=== PATIENT | female | born 1980 | race Caucasian/White ===

== ENCOUNTER 2018-09-30 00:10 | Inpatient (IN) | payer OTHER ==
[2018-09-30] VITALS (714 sets, daily range): BP systolic 124–154; BP diastolic 79–100; PULSE 71–98; TEMP 97.9–98.7; O2SAT 88–100
[~2018-09-30] VITALS: Ht 167.6 cm; Wt 199.3 kg
[2018-09-30] MEDS ORDERED: LIPITOR 10MG10 MG PO (01:53)
[2018-09-30] MEDS ORDERED: MASON NATURAL2000 IU PO (01:55)
[2018-09-30] MEDS ORDERED: PROVERA 10MG10 MG PO (01:55)
[2018-09-30] MEDS ORDERED: CELEXA 20MG20 MG/TAB PO (01:57)
[2018-09-30] MEDS ORDERED: ALBUTEROL0.83 MG/ML IH (01:58)
[2018-09-30] MEDS ORDERED: PRINIVIL20 MG PO (01:59)
[2018-09-30] MEDS ORDERED: GLUCOPHAGE XR500 M1 PO (01:59)
[2018-09-30] MEDS ORDERED: SINGULAIR 110 MG/TAB PO (02:00)
[2018-09-30] MEDS ORDERED: ZYRTEC 10MG10 MG PO (02:00)
[2018-09-30] MEDS ORDERED: FLOVENT 220MCG7.9 GM IH (02:01)
[2018-09-30] MEDS ORDERED: PROAIR HFA0.09 MG/AC IH (02:02)
[2018-09-30] MEDS ORDERED: QUALITY CHOICE AL70% TP (02:03)
[2018-09-30] MEDS ORDERED: LANCETS MC (02:04)
[2018-09-30 02:31] LABS: HEMOGLOBIN 15.4 g/dl (12.5-16.0); MEAN CELL VOLUME 92 fl (80.0-100.0); MEAN CORPUSCULAR HEMOGLOBIN 30 pg (27.0-31.0); MEAN CORPUSCULAR HGB CONC 33 g/dl (33.0-37.0); MEAN PLATELET VOLUME 9.6 fl (7.4-10.4); PLATELET COUNT 333 K/mm3 (130-400); RED BLOOD COUNT 5.12 M/mm3 (4.10-5.30); REDCELL DISTRIBUTION WIDTH-CV 13.7 % (11.5-14.5)
[2018-09-30 02:43] LABS: ALANINE AMINOTRANSFERASE 18 U/L (9-52); ALBUMIN 4.3 gm/dL (3.5-5.0); ALKALINE PHOSPHATASE 93 U/L (50-136); ANION GAP 7 mmol/L (7-16); AST,SGOT 23 U/L (15-37); BILIRUBIN,TOTAL 0.7 mg/dL (0.0-1.0); BLOOD UREA NITROGEN 13 mg/dL (7-17); CALCIUM 8.9 mg/dL (8.4-10.2); CARBON DIOXIDE 27 mmol/L (22-30); CHLORIDE 109 mmol/L (98-107); CREATININE, serum 0.66 mg/dL (0.52-1.25); GLUCOSE 151 mg/dL (74-106); POTASSIUM 4.6 mmol/L (3.4-5.0); SODIUM 142 mmol/L (137-145)
[2018-09-30 02:54] LABS: TROPONIN-I < 0.012 ng/mL (0.000-0.034)
[2018-09-30 03:03] LABS: BAND 17 % (0-10); LYMPHOCYTE 4 % (20.0-51.0); NEUTROPHILS 74 % (42.0-75.2); PLATELET ESTIMATE NORMAL (NORMAL)
[2018-09-30 03:04] LABS: HYPOCHROMIA 1+
[2018-09-30 03:19] LABS: ARTERIAL BLD GAS O2 SATURATION 97.8 % (92-100); ARTERIAL BLD GAS TCO2 CT 24.8; ARTERIAL BLOOD GAS BASE EXCESS -1.9 (-2-2); ARTERIAL BLOOD GAS HCO3 23.5 meq/L (22-26); ARTERIAL BLOOD GAS PCO2 42.5 mmHg (35-45); ARTERIAL BLOOD GAS pH 7.36 (7.35-7.45)
[2018-09-30 06:17] LABS: AMORPHOUS CRYSTAL Present /uL; HYALINE CAST >12 /lpf; PH 5 (5-8); SQUAMOUS EPITHELIAL 0-2 /hpf; URINE APPEARANCE Turbid; URINE BACTERIA None Seen /hpf; URINE BILIRUBIN Negative (NEGATIVE); URINE BLOOD 1+ (NEGATIVE); URINE COLOR Yellow; URINE GLUCOSE Negative (NEGATIVE); URINE KETONE Trace (NEGATIVE); URINE LEUKOCYTE ESTERASE Negative (NEGATIVE); URINE NITRATE Negative (NEGATIVE); URINE PROTEIN(semi-quant) 2+ (NEGATIVE); URINE RBC None Seen /hpf; URINE UROBILINOGEN Negative (NEGATIVE)
[2018-09-30 06:29] LABS: COLLECTION METHOD CLEAN CATCH
[2018-09-30 08:26] LABS: ARTERIAL BLD GAS O2 SATURATION 97.3 % (92-100); ARTERIAL BLD GAS TCO2 CT 23.7; ARTERIAL BLOOD GAS BASE EXCESS -3.1 (-2-2); ARTERIAL BLOOD GAS HCO3 22.4 meq/L (22-26); ARTERIAL BLOOD GAS PCO2 41.9 mmHg (35-45); ARTERIAL BLOOD GAS PO2 100.4 mmHg (80-100); ARTERIAL BLOOD GAS pH 7.35 (7.35-7.45)
[2018-09-30 17:06] LABS: ARTERIAL BLD GAS O2 SATURATION 94.8 % (92-100); ARTERIAL BLD GAS TCO2 CT 25.3; ARTERIAL BLOOD GAS BASE EXCESS -1.4 (-2-2); ARTERIAL BLOOD GAS PCO2 42.5 mmHg (35-45); ARTERIAL BLOOD GAS PO2 78.6 mmHg (80-100); ARTERIAL BLOOD GAS pH 7.37 (7.35-7.45)
[2018-10-01] VITALS (335 sets, daily range): BP systolic 101–131; BP diastolic 48–79; PULSE 62–95; TEMP 97.4–98.2; O2SAT 84–100
[2018-10-01 05:54] LABS: HEMATOCRIT 42.8 % (37.0-47.0); HEMOGLOBIN 13.7 g/dl (12.5-16.0); MEAN CELL VOLUME 94 fl (80.0-100.0); MEAN CORPUSCULAR HEMOGLOBIN 30 pg (27.0-31.0); MEAN CORPUSCULAR HGB CONC 32 g/dl (33.0-37.0); MEAN PLATELET VOLUME 9.5 fl (7.4-10.4); PLATELET COUNT 314 K/mm3 (130-400); RED BLOOD COUNT 4.57 M/mm3 (4.10-5.30); REDCELL DISTRIBUTION WIDTH-CV 14.1 % (11.5-14.5)
[2018-10-01 06:26] LABS: CALCIUM 8.7 mg/dL (8.4-10.2); CREATININE, serum 0.6 mg/dL (0.52-1.25); POTASSIUM 5.4 mmol/L (3.4-5.0)
[2018-10-01 07:10] LABS: BAND 8 % (0-10); LYMPHOCYTE 10 % (20.0-51.0); NEUTROPHILS 80 % (42.0-75.2)
[2018-10-01 07:11] LABS: PLATELET ESTIMATE NORMAL (NORMAL); STOMATOCYTE 1+
[2018-10-02] VITALS (7 sets, daily range): BP systolic 106–133; BP diastolic 55–84; PULSE 70–92; TEMP 97.4–98.6
[2018-10-02 04:43] LABS: ARTERIAL BLD GAS O2 SATURATION 98.4 % (92-100); ARTERIAL BLD GAS TCO2 CT 30.1; ARTERIAL BLOOD GAS BASE EXCESS 1.7 (-2-2); ARTERIAL BLOOD GAS HCO3 28.5 meq/L (22-26); ARTERIAL BLOOD GAS PCO2 53.1 mmHg (35-45); ARTERIAL BLOOD GAS PO2 140.1 mmHg (80-100); ARTERIAL BLOOD GAS pH 7.35 (7.35-7.45)
[2018-10-02 06:11] LABS: BASO % 0.1 % (0.0-2.0); GRAN # 12.7 (1.4-6.5); GRAN % 86.3 % (42.2-75.2); HEMATOCRIT 42.9 % (37.0-47.0); HEMOGLOBIN 13.5 g/dl (12.5-16.0); LYMPH % 7.1 % (20.0-51.0); MEAN CELL VOLUME 95 fl (80.0-100.0); MEAN CORPUSCULAR HEMOGLOBIN 30 pg (27.0-31.0); MEAN CORPUSCULAR HGB CONC 32 g/dl (33.0-37.0); MEAN PLATELET VOLUME 9.7 fl (7.4-10.4); MONO # 0.9 (0.1-0.6); PLATELET COUNT 322 K/mm3 (130-400); RED BLOOD COUNT 4.54 M/mm3 (4.10-5.30); REDCELL DISTRIBUTION WIDTH-CV 14.1 % (11.5-14.5)
[2018-10-02 06:32] LABS: C-REACTIVE PROTEIN 2.8 mg/dL (0.0-0.9); CALCIUM 8.8 mg/dL (8.4-10.2); CREATININE, serum 0.71 mg/dL (0.52-1.25); POTASSIUM 4.9 mmol/L (3.4-5.0)
[2018-10-03 05:16] VITALS: BP 98/61; PULSE 69; TEMP 97.7
[2018-10-03 05:58] LABS: HEMATOCRIT 42.5 % (37.0-47.0); HEMOGLOBIN 13.4 g/dl (12.5-16.0); MEAN CELL VOLUME 94 fl (80.0-100.0); MEAN CORPUSCULAR HEMOGLOBIN 30 pg (27.0-31.0); MEAN CORPUSCULAR HGB CONC 32 g/dl (33.0-37.0); MEAN PLATELET VOLUME 9.5 fl (7.4-10.4); PLATELET COUNT 294 K/mm3 (130-400)
[2018-10-03 06:13] LABS: CALCIUM 8.6 mg/dL (8.4-10.2); CREATININE, serum 0.75 mg/dL (0.52-1.25)
[2018-10-03 07:32] VITALS: BP 126/80; PULSE 70; TEMP 97.4
[2018-10-03 07:51] LABS: BAND 2 % (0-10); HYPOCHROMIA 1+; LYMPHOCYTE 20 % (20.0-51.0); NEUTROPHILS 64 % (42.0-75.2); PLATELET ESTIMATE NORMAL (NORMAL)
[2018-10-03 11:22] LABS: ARTERIAL BLD GAS O2 SATURATION 93.2 % (92-100); ARTERIAL BLD GAS TCO2 CT 28.9; ARTERIAL BLOOD GAS BASE EXCESS 2.2 (-2-2); ARTERIAL BLOOD GAS HCO3 27.6 meq/L (22-26); ARTERIAL BLOOD GAS PCO2 45.4 mmHg (35-45)
[2018-10-03 11:25] VITALS: BP 114/64; PULSE 77; TEMP 97.8
[2018-10-03] MEDS ORDERED: PREDNISONE20 MG PO (13:50)
[2018-10-03] MEDS ORDERED: LEVAQUIN 750MG750 M1 PO (13:51)
== END 2018-10-03 17:00 | disposition home or self-care (01) | DRG 189 ==
LOC: ICU 00:10 → MEDICAL 01:20
PROVIDERS: Internal Medicine Critical Care Medicine; Internal Medicine Pulmonary Disease; Nurse Practitioner Family; Physician Assistant
PROC: 02HV33Z Insertion of Infusion Device into Superior Vena Cava, Percutaneous Approach (ICD-10-PCS; principal; 2018-09-30)
DX: J96.01 Acute respiratory failure with hypoxia (principal); J18.9 Pneumonia, unspecified organism; J45.31 Mild persistent asthma with (acute) exacerbation; E87.2 Acidosis; E66.2 Morbid (severe) obesity with alveolar hypoventilation; J96.02 Acute respiratory failure with hypercapnia; I10 Essential (primary) hypertension; F17.210 Nicotine dependence, cigarettes, uncomplicated; Z91.14 Patient's other noncompliance with medication regimen; E11.9 Type 2 diabetes mellitus without complications; Z85.42 Personal history of malignant neoplasm of other parts of uterus; E78.5 Hyperlipidemia, unspecified; N39.3 Stress incontinence (female) (male); E87.5 Hyperkalemia
CPT/HCPCS: 99222-AI; 99232-AI; 99239; A4216; C1751; C1894; J0692; J1650; J1815; J1956; J2920; J2930; J7030; J7512

== ENCOUNTER 2018-10-22 07:22 | Outpatient (CLI) | payer OTHER ==
[~2018-10-22] VITALS: Ht 167.7 cm; Wt 174.5 kg
[2018-10-22] VITALS (9 sets, daily range): BP systolic 106–127; BP diastolic 66–86; PULSE 58–70; TEMP 97.9
[~2018-10-22 07:22] MED LIST: ALBUTEROL0.83 MG/ML IH; CELEXA 20MG20 MG/TAB PO; FLOVENT 220MCG7.9 GM IH; GLUCOPHAGE XR500 M1 PO; LANCETS MC; LEVAQUIN 750MG750 M1 PO; LIPITOR 10MG10 MG PO; MASON NATURAL2000 IU PO; PREDNISONE20 MG PO; PRINIVIL20 MG PO; PROAIR HFA0.09 MG/AC IH; PROVERA 10MG10 MG PO; QUALITY CHOICE AL70% TP; SINGULAIR 110 MG/TAB PO; ZYRTEC 10MG10 MG PO
[2018-10-22 08:11] LABS: HEMATOCRIT 41.8 % (37.0-47.0); HEMOGLOBIN 13.8 g/dl (12.5-16.0); MEAN CELL VOLUME 91 fl (80.0-100.0); MEAN CORPUSCULAR HEMOGLOBIN 30 pg (27.0-31.0); MEAN CORPUSCULAR HGB CONC 33 g/dl (33.0-37.0); MEAN PLATELET VOLUME 9.2 fl (7.4-10.4); PLATELET COUNT 322 K/mm3 (130-400); RED BLOOD COUNT 4.61 M/mm3 (4.10-5.30); REDCELL DISTRIBUTION WIDTH-CV 13.3 % (11.5-14.5)
[2018-10-22 08:17] LABS: CALCIUM 8.8 mg/dL (8.4-10.2); CREATININE, serum 0.59 mg/dL (0.52-1.25); POTASSIUM 4.1 mmol/L (3.4-5.0)
[2018-10-22 08:21] LABS: INR 1.2 (0.8-3.0); PROTHROMBIN TIME 14.1 SECONDS (9.7-12.8)
[2018-10-22] MEDS ORDERED: VALTREX1 GM PO (08:36)
[2018-10-22] MEDS ORDERED: PREDNISONE20 MG PO (08:36)
[2018-10-22] MEDS ORDERED: ASPIRIN 81M81 MG/TA2 PO (09:09)
--- NOTE | 2018-10-22 11:24 | NUR ---
Discharge instructions given to pt.Pt verbalizes understanding.INT removed,catheter tip intact.Pt escorted out via wheelchair.Pt has home oxygen with her at 2 l/nc.
== END 2018-10-22 11:37 | disposition home or self-care (01) ==
LOC: COL.RAD 07:22
PROVIDERS: Internal Medicine Cardiovascular Disease
DX: Q21.1 Atrial septal defect (principal)
CPT/HCPCS: G9654; J2250; J2405; J2704; J7030

== ENCOUNTER → 2020-03-14 | Outpatient (CLI) | payer OTHER ==
[~2020-03-14] MED LIST changes: +ASPIRIN 81M81 MG/TA2 PO; +VALTREX1 GM PO
== END ==
LOC: COL.RAD 08:25
DX: J45.40 Moderate persistent asthma, uncomplicated (principal); I34.0 Nonrheumatic mitral (valve) insufficiency; R91.8 Other nonspecific abnormal finding of lung field; Z87.81 Personal history of (healed) traumatic fracture